=== PATIENT | male | born 1950 ===

== ENCOUNTER → 2018-07-20 | Outpatient (CLI) | payer MEDICARE, BC ==
--- NOTE | 2018-07-20 19:39 | XCELERA REPORT ---
[address] [address] Transthoracic Echocardiogram Report Name: MIGUEL GAUTHIER Age: 68 yrs Gender: Male : 1950 Patient Status: Outpatient Patient Location: Study Date: 07/20/2018 10:10 AM Height: 68 in Weight: 200 lb BSA: 2.0 m2 Reason For Study: UNCONTROLLED HTN Ordering Physician: JANELL DURAN Performed By: Rody Corea Interpretation Summary Uncertain AV morphology, mild calcifc with mild/mod AR with no LV enlargement. Mod Mitral annular calcification with no MS no MR but mod LA enlargement, SHRUTHI not calculated Mild concentric LVH with normal LVEF and stage I LV diastolic dysfunction. No regional wall motion abn. RH poorly seen no pulm hypertension. RVSP 29mm Hg, IVC poorly seen. MMode/2D Measurements & Calculations RVDd: 4.0 cm LVIDd: 6.1 cm FS: 41.2 % Ao root diam: 3.0 cm IVSd: 1.2 cm LVIDs: 3.6 cm EDV(Teich): 190.2 ml LVPWd: 1.3 cm ESV(Teich): 54.8 ml Ao root area: 7.2 cm2 LA dimension: 4.7 cm EF(Teich): 71.2 % Doppler Measurements & Calculations MV E max tea: MV dec time: Ao V2 max: AI max tea: 84.5 cm/sec 0.25 sec 206.5 cm/sec 342.4 cm/sec MV A max tea: Ao max PG: AI max P.9 mmHg 91.9 cm/sec 17.1 mmHg AI dec slope: MV E/A: 0.92 Ao V2 mean: 153.8 cm/sec2 133.5 cm/sec AI P1/2t: 651.8 msec Ao mean P.2 mmHg Ao V2 VTI: 33.4 cm LV V1 max PG: PA V2 max: PI end-d tea: TR max tea: 7.5 mmHg 111.1 cm/sec 131.7 cm/sec 255.8 cm/sec LV V1 mean PG: PA max PG: TR max P.2 mmHg 3.5 mmHg 4.9 mmHg LV V1 max: 137.1 cm/sec LV V1 mean: 83.9 cm/sec LV V1 VTI: 22.2 cm AV P1/2t-pr_phl: 651.8 msec Left Ventricle The left ventricle is normal in size. There is mild concentric left ventricular hypertrophy. The left ventricular ejection fraction is within normal limits. LV EF is 60-65%. Doppler measurements suggest impaired left ventricular relaxation, which is associated with grade I/IV or mild diastolic dysfunction. No regional wall motion abnormalities noted. There is no thrombus. Right Ventricle The right ventricle is normal in size, thickness and function. The right ventricular systolic function is normal. Atria The right atrium is normal. The left atrium is moderately dilated. The interatrial septum is intact with no evidence for an atrial septal defect. Mitral Valve The mitral valve is normal in structure and function. There is moderate mitral annular calcification. There is no evidence of mitral valve prolapse. There is no mitral valve stenosis. There is no mitral regurgitation noted. Aortic Valve The aortic valve is not well visualized secondary to technical limitations. The aortic valve opens well. The aortic valve is sclerotic and shows some degree of functional abnormality. AV configuration not visualized. There is no aortic valvular vegetation. There is a peak gradient of 17 mm of Hg. There is a mild to moderate amount of aortic regurgitation. Tricuspid Valve The tricuspid valve is not well visualized secondary to technical limitations. There is a mild amount of tricuspid regurgitation. RSVP is equal to 29. Pulmonic Valve The pulmonic valve is not well visualized. There is a mild to moderate amount of pulmonic regurgitation. Great Vessels The aortic root is normal size. Effusions Minimal pericardial effusion. I WMSI = 1.00 % Normal = 100 Segments Size X - Cannot 2 - 4 - 1-2 small Interpret 1 - Normal Hypokinetic 3 - AkineticDyskinetic 3-5 moderate 5 - 6-14 large Aneurysmal 15-16 diffuse : JANELL DURAN > Dmitri Curtis
== END ==
LOC: SP 09:48
PROVIDERS: ATTEND Family Medicine
DX: I10 Essential (primary) hypertension (principal)
CPT/HCPCS: 93306